=== PATIENT | male | born 1960 | race Two or more races ===

== ENCOUNTER 2020-04-21 11:08 | Inpatient (IN) | payer SELFPAY ==
[2020-04-21 11:42] LABS: ABSOLUTE EOSINOPHILS # (AUTO) 0.1 10^3/uL (0.0-0.6); ABSOLUTE LYMPHOCYTES (AUTO) 1.8 10^3/uL (0.5-4.7); ABSOLUTE MONOCYTES (AUTO) 0.4 10^3/uL (0.1-1.4); ABSOLUTE NEUT (AUTO) 7.4 10^3/uL (1.7-8.2); BASOPHILS % (AUTO) 0.5 % (0-2); EOSINOPHILS % (AUTO) 1.4 % (0-6); LYMPHOCYTES % (AUTO) 18.7 % (13-45); MEAN CORPUSCULAR HEMOGLOBIN 30.2 pg (27.0-33.4); MEAN CORPUSCULAR HGB CONC 35.7 g/dL (32.0-36.0); MEAN CORPUSCULAR VOLUME 85 fl (80-97); MONOCYTES % (AUTO) 4.4 % (3-13); PLATELET COUNT 270 10^3/uL (150-450); RED BLOOD COUNT 5.31 10^6/uL (4.35-5.55); RED CELL DISTRIBUTION WIDTH 13.1 % (11.5-14.0); TOTAL CELLS COUNTED % (AUTO) 100 %; WHITE BLOOD COUNT 9.9 10^3/uL (4.0-10.5)
[2020-04-21] MEDS: NORMAL SALINE 1000 ML 1,000 ML IV PRN ×2 (11:50→12:19)
[2020-04-21 12:02] LABS: ALBUMIN 4.6 g/dL (3.5-5.0); ALKALINE PHOSPHATASE 167 U/L (38-126); ANION GAP 12 (5-19); ASPARTATE AMINO TRANSFERASE 91 U/L (17-59); BLOOD UREA NITROGEN 15 mg/dL (7-20); CALCIUM 9.1 mg/dL (8.4-10.2); CARBON DIOXIDE 26 mmol/L (22-30); CHLORIDE 91 mmol/L (98-107); POTASSIUM 4.6 mmol/L (3.6-5.0)
[2020-04-21 12:28] LABS: GLUCOSE 613 mg/dL (75-110)
[2020-04-21] MEDS ORDERED: INSULIN REG, HUMAN 100 UNIT/ML 3 ML VIAL (PYX) IV ONE (12:30)
[2020-04-21 12:33] LABS: VENOUS BLOOD BASE EXCESS 1.2 mmol/L; VENOUS BLOOD PCO2 42.1 mmHg (35-63); VENOUS BLOOD PH 7.41 (7.30-7.42)
--- NOTE | 2020-04-21 13:07 | ER Document Report ---
Entered by BERKLEY RODRIGUEZ SCRIBE 04/21/20 1206 Acting as scribe for:RADHA PERES MD ED Blood Sugar Problem - General Chief Complaint: High Blood Sugar Stated Complaint: ABDOMINAL PAIN Time Seen by Provider: 04/21/20 11:44 Mode of Arrival: Medic Information source: Patient Notes: This 59 year old male patient presents to the emergency department today with complaints of urinary frequency and increased thirst for the last 2-3 weeks. Patient reports that he has never been diagnosed with diabetes. Patient also mentions some left sided flank pain. - Related Data Allergies/Adverse Reactions: No Known Allergies Allergy (Verified 04/21/20 12:21) Past Medical History - General Information source: Patient - Social History Smoking Status: Never Smoker Cigarette use (# per day): No Chew tobacco use (# tins/day): No Frequency of alcohol use: None Drug Abuse: None Occupation: construction Lives with: Family Family History: Reviewed & Not Pertinent - Medical History Medical History: Negative Surgical Hx: Negative Review of Systems - Review of Systems Constitutional: See HPI, Other - increased thrist, frequent urination EENT: No symptoms reported Cardiovascular: See HPI, Chest pain - reproducible Respiratory: No symptoms reported Gastrointestinal: See HPI, Abdominal pain Genitourinary: See HPI, Frequency, Flank pain Male Genitourinary: No symptoms reported Musculoskeletal: No symptoms reported Skin: No symptoms reported Hematologic/Lymphatic: No symptoms reported Neurological/Psychological: No symptoms reported -: Yes All other systems reviewed and negative Physical Exam - Vital signs Vitals: Temp Pulse Resp BP Pulse Ox 98.9 F 84 20 150/98 H 95 04/21/20 11:12 04/21/20 11:12 04/21/20 11:12 04/21/20 11:12 04/21/20 11:12 - Notes Notes: Physical Exam: General: Alert, appears well. No ketone odor on breath. HEENT: Normocephalic. Atraumatic. PERRL. Extraocular movements intact. Oropharynx clear. Dry oral mucosa. Neck: Supple. Non-tender. Respiratory: No respiratory distress. Clear and equal breath sounds bilaterally. Reproducible chest pain, chest wall tenderness to palpation. Not tachypneic. Cardiovascular: Regular rate and rhythm. Abdominal: Left lower quadrant and left lateral abdominal tenderness with palpation. No distension. Normal Bowel Sounds. Back: No muscle palpation tenderness. Left CVA percussion is quite tender. Right CVA percussion is not tender. Extremities: Moves all four extremities. Upper extremities: Normal inspection. Normal ROM. Lower extremities: Normal inspection. No edema. Normal ROM. Neurological: Normal cognition. AAOx4. Normal speech. Psychological: Normal affect. Normal Mood. Skin: Warm. Dry. Normal color. Course - Vital Signs Vital signs: Temp Pulse Resp BP Pulse Ox 98.1 F 84 21 H 144/79 H 97 04/21/20 13:46 04/21/20 11:12 04/21/20 14:01 04/21/20 14:01 04/21/20 14:01 - Laboratory Result Diagrams: 04/21/20 11:25 04/21/20 11:25 Laboratory results interpreted by me: 04/21/20 04/21/20 04/21/20 11:15 11:25 12:49 Sodium 129.3 L Chloride 91 L Glucose 613 H* POC Glucose > 550 H* 407 H* AST 91 H ALT 103 H Alkaline Phosphatase 167 H - EKG Interpretation by Ct EKG shows normal: Sinus rhythm, [place], Intervals, QRS Complexes, ST-T Waves Rate: Normal - 86 Rhythm: NSR - Consults Dr. Barber Time consulted: 13:15 Consulted provider: will come to ER Discharge - Discharge Clinical Impression: New onset type 2 diabetes mellitus, Acute left flank pain Hyperglycemia due to type 2 diabetes mellitus Qualifiers: Diabetes mellitus mcfp insulin use: without long term care administrator use Qualified Code(s): E11.65 - Type 2 diabetes mellitus with hyperglycemia Condition: Stable Disposition: ADMITTED INPATIENT Admitting Provider: Elisabeth (Hospitalist) Unit Admitted: Telemetry I personally performed the services described in the documentation, reviewed and edited the documentation which was dictated to the scribe in my presence, and it accurately records my words and actions.
[2020-04-21] MEDS ORDERED: NORMAL SALINE 1000 ML 1,000 ML IV ONE (13:38)
--- NOTE | 2020-04-21 14:36 | RADIOLOGY REPORT (SQ) ---
EXAM DESCRIPTION: KUB/ABDOMEN (SINGLE VIEW) IMAGES COMPLETED DATE/TIME: 04/21/2020 2:23 pm REASON FOR STUDY: Left lower quadrant abdominal pain COMPARISON: None. NUMBER OF VIEWS: One view. TECHNIQUE: Supine radiographic image of the abdomen acquired. LIMITATIONS: None. FINDINGS: BOWEL GAS PATTERN: Normal bowel gas pattern. No dilated loops. CALCIFICATIONS: No suspicious calcifications. SOFT TISSUES: No gross mass or suggestion of organomegaly. HARDWARE: None in the abdomen. BONES: No acute fracture. No worrisome bone lesions. OTHER: No other significant finding. IMPRESSION: NO RADIOGRAPHIC EVIDENCE FOR ACUTE ABDOMINAL DISEASE. TECHNICAL DOCUMENTATION: JOB ID: [id number] 2010 [employer]- All Rights Reserved Reading location - IP/workstation name: [email or web address]
[2020-04-21] MEDS ORDERED: KETOROLAC TROMETHAMINE INJ/PF 30 MG/1 ML SDV IV ONE (14:42)
--- NOTE | 2020-04-21 14:42 | EKG REPORT ---
SEVERITY:- OTHERWISE NORMAL ECG - SINUS RHYTHM LEFT AXIS DEVIATION : Confirmed by: Daphney Rosales MD 21-Apr-2020 14:41:38
[2020-04-21 15:16] LABS: APPEARANCE,URINE CLEAR; BILIRUBIN,URINE NEGATIVE (NEGATIVE); COLOR,URINE STRAW; GLUCOSE, URINE >=500 mg/dL (NEGATIVE); KETONES,URINE 20 mg/dL (NEGATIVE); LEUKOCYTE ESTERASE,URINE NEGATIVE (NEGATIVE); NITRITE,URINE NEGATIVE (NEGATIVE); PROTEIN,URINE NEGATIVE (NEGATIVE); URINE SPECIFIC GRAVITY 1.031; UROBILINOGEN,URINE NEGATIVE mg/dL (<2.0)
--- NOTE | 2020-04-21 15:23 | RADIOLOGY REPORT (SQ) ---
EXAM DESCRIPTION: CT ABD/PELVIS NO ORAL OR IV IMAGES COMPLETED DATE/TIME: 04/21/2020 3:01 pm REASON FOR STUDY: Left flank and abdomen pain COMPARISON: None. TECHNIQUE: CT scan of the abdomen and pelvis performed without intravenous or oral contrast. Images reviewed with lung, soft tissue, and bone windows. Reconstructed coronal and sagittal MPR images revi ewed. All images stored on PACS. All CT scanners at this facility use dose modulation, iterative reconstruction, and/or weight based d osing when appropriate to reduce radiation dose to as low as reasonably achievable (ALARA). [facility]: Dose Right [facility]: CareDose [facility]: Dose Right [facility]: Teradose 4D [facility]: [employer] RADIATION DOSE: CT Rad equipment meets quality standard of care and radiation dose reduction techniq ues were employed. CTDIvol: 16.2 mGy. DLP: 966 mGy-cm.mGy. LIMITATIONS: None. FINDINGS: LOWER CHEST: No significant findings. No nodules or infiltrates. NON-CONTRASTED LIVER, SPLEEN, ADRENALS: Evaluation limited by lack of IV contrast. No identified sign ificant masses. PANCREAS: No masses. No peripancreatic inflammatory changes. GALLBLADDER: No identified stones by CT criteria. No inflammatory changes to suggest cholecystitis. RIGHT KIDNEY AND URETER: No suspicious masses. Assessment limited by lack of IV contrast. No signif icant calcifications. No hydronephrosis or hydroureter. LEFT KIDNEY AND URETER: No suspicious masses. Assessment limited by lack of IV contrast. No signifi cant calcifications. No hydronephrosis or hydroureter. AORTA AND RETROPERITONEUM: No aneurysm. No retroperitoneal masses or adenopathy. BOWEL AND PERITONEAL CAVITY: Mild sigmoid diverticulosis. No obvious masses or inflammatory changes. No free fluid. APPENDIX: Surgically absent. PELVIS, BLADDER, AND ABDOMINAL WALL:No abnormal masses. No free fluid. Bladder normal. BONES: No significant findings. OTHER: No other significant finding. IMPRESSION: NO SIGNIFICANT OR ACUTE PROCESS IN THE ABDOMEN OR PELVIS. COMMENT: Quality ID # [id number]: Final reports with documentation of one or more dose reduction techniques (e.g., Automated exposure control, adjustment of the mA and/or kV according to patient size, use of iterative reconstruction technique) TECHNICAL DOCUMENTATION: JOB ID: [id number] 2010 [employer]- All Rights Reserved Reading location - IP/workstation name: [email or web address]
[2020-04-21] MEDS ORDERED: ONDANSETRON 4 MG TAB.RAPDIS PO PRN (15:42)
[2020-04-21] MEDS ORDERED: ONDANSETRON HCL INJ/PF 4 MG/2 ML SDV IV PRN (15:42)
[2020-04-21] MEDS ORDERED: ACETAMINOPHEN 325 MG TABLET PO PRN (15:42)
[2020-04-21 17:41] LABS: ANION GAP 6 (5-19); BLOOD UREA NITROGEN 13 mg/dL (7-20); CALCIUM 7.9 mg/dL (8.4-10.2); CARBON DIOXIDE 26 mmol/L (22-30); CHLORIDE 101 mmol/L (98-107); GLUCOSE 332 mg/dL (75-110); POTASSIUM 4.3 mmol/L (3.6-5.0)
--- NOTE | 2020-04-21 18:06 | PDOC H&P ---
History of Present Illness Admission Date/PCP: 04/21/20 14:07 History of Present Illness: JOSHUA DEL VALLE is a 59 year old male with no known past medical history who presents with a two-week history of progressive abdominal pain and nausea/vomiting/polyuria/polydipsia, found to have blood sugar in the 600s on arrival to ED. Sodium mildly low at 129, normal anion gap, UA showing glucos uria and mild ketones. Patient denies having any medical problems in the past and denies taking any medications. He is primarily Mohawk-speaking but also speaks some Iranian as well. We conversed in a mixture of both languages during this encounter and I answered the patient's questions to satisfaction. Patient will be admitted for insulin drip, IV fluids, diabetic education. He reportedly does not have insurance and will need to be connected with appropriate resources for his diabetic care. I did a diabetic foot exam during this encounter and he did not have any significant calluses or ulcers. Past Medical History Medical History: None Past Surgical History Past Surgical History: Reports: None Social History Information Source: Patient, Emergency Med Personnel Lives with: Family Smoking Status: Never Smoker Electronic Cigarette use?: No Frequency of Alcohol Use: Rare Hx Recreational Drug Use: No - Advance Directive Resuscitation Status: Full Code Surrogate healthcare decision maker:: Sister Family History Family History: None, Reviewed & Not Pertinent Parental Family History Reviewed: Yes Children Family History Reviewed: Yes Sibling(s) Family History Reviewed.: Yes Medication/Allergy Home Medications: No Home Medications 04/21/20 Allergies/Adverse Reactions: No Known Allergies Allergy (Verified 04/21/20 12:21) Review of Systems All systems: reviewed and no additional remarkable complaints except as stated - As per HPI, otherwise negative Physical Exam Vital Signs: Temp Pulse Resp BP Pulse Ox 98.1 F 84 14 127/73 H 99 04/21/20 13:46 04/21/20 11:12 04/21/20 16:01 04/21/20 16:01 04/21/20 16:01 Intake & Output 04/20/20 04/21/20 04/22/20 06:59 06:59 06:59 Intake Total 2000 Output Total 600 Balance 1400 Weight 99.5 kg General appearance: PRESENT: no acute distress, well-developed, well-nourished Head exam: PRESENT: atraumatic, normocephalic Eye exam: PRESENT: conjunctiva pink Mouth exam: PRESENT: moist Respiratory exam: PRESENT: clear to auscultation olga. ABSENT: rales, rhonchi, wheezes Cardiovascular exam: PRESENT: RRR. ABSENT: diastolic murmur, rubs, systolic murmur GI/Abdominal exam: PRESENT: normal bowel sounds, soft, tenderness - Mildly tender primarily in lower abdomen. ABSENT: distended, guarding, mass, organo lmegaly, rebound Rectal exam: PRESENT: deferred Musculoskeletal exam: PRESENT: ambulatory Neurological exam: PRESENT: alert, awake, oriented to person, oriented to place, oriented to time, oriented to situation Psychiatric exam: PRESENT: appropriate affect Skin exam: PRESENT: dry, intact, warm Results Laboratory Results: 04/21/20 11:25 04/21/20 16:51 04/21/20 04/21/20 04/21/20 11:25 11:25 12:05 WBC 9.9 RBC 5.31 Hgb 16.0 Hct 45.0 MCV 85 MCH 30.2 MCHC 35.7 RDW 13.1 Plt Count 270 Seg Neutrophils % 75.0 VBG pH 7.41 VBG pCO2 42.1 VBG HCO3 26.0 VBG Base Excess 1.2 Sodium 129.3 L Potassium 4.6 Chloride 91 L Carbon Dioxide 26 Anion Gap 12 BUN 15 Creatinine 0.83 Est GFR ( Amer) > 60 Glucose 613 H* Calcium 9.1 Total Bilirubin 1.0 AST 91 H Alkaline Phosphatase 167 H Total Protein 8.0 Albumin 4.6 Lipase Urine Color Urine Appearance Urine pH Ur Specific [place] Urine Protein Urine Glucose (UA) Urine Ketones Urine Blood Urine Nitrite Ur Leukocyte Esterase Urine WBC (Auto) Urine RBC (Auto) 04/21/20 04/21/20 14:55 16:51 WBC RBC Hgb Hct MCV MCH MCHC RDW Plt Count Seg Neutrophils % VBG pH VBG pCO2 VBG HCO3 VBG Base Excess Sodium 133.1 L Potassium 4.3 Chloride 101 Carbon Dioxide 26 Anion Gap 6 BUN 13 Creatinine 0.59 Est GFR ( Amer) > 60 Glucose 332 H Calcium 7.9 L Total Bilirubin AST Alkaline Phosphatase Total Protein Albumin Lipase 198.1 Urine Color STRAW Urine Appearance CLEAR Urine pH 7.0 Ur Specific [place] 1.031 Urine Protein NEGATIVE Urine Glucose (UA) >=500 H Urine Ketones 20 H Urine Blood NEGATIVE Urine Nitrite NEGATIVE Ur Leukocyte Esterase NEGATIVE Urine WBC (Auto) 1 Urine RBC (Auto) 1 Impressions: KUB X-Ray 04/21/20 13:53 IMPRESSION: NO RADIOGRAPHIC EVIDENCE FOR ACUTE ABDOMINAL DISEASE. Abdomen/Pelvis CT 04/21/20 14:45 IMPRESSION: NO SIGNIFICANT OR ACUTE PROCESS IN THE ABDOMEN OR PELVIS. Assessment and Plan - Diagnosis (1) New onset type 2 diabetes mellitus Is this a current diagnosis for this admission?: Yes Plan: Blood sugar 600 on admission Abdominal pain, polyuria, polydipsia, and nausea/vomiting on admission IV insulin started along with IV fluids Hemoglobin A1c peer educator consult (2) Elevated LFTs Is this a current diagnosis for this admission?: Yes Plan: Likely due to markedly elevated blood sugar Lipase normal Recheck LFTs (3) Mohawk speaking patient Is this a current diagnosis for this admission?: Yes - Time Time Spent with patient: 35 or more minutes Medications reviewed and adjusted accordingly: Yes Anticipated discharge: Home Within: within 72 hours - Inpatient Certification Based on my medical assessment, after consideration of the patient's comorbidities, presenting symptoms, or acuity I expect that the services needed warrant INPATIENT care.: Yes I certify that my determination is in accordance with my understanding of Medicare's requirements for reasonable and necessary INPATIENT services [42 CFR 412.3e].: Yes Medical Necessity: Significant Comorbidiites Make Outpatient Treatment Too Risky, Need Close Monitoring Due to Risk of Patient Decompensation, Need For IV Fluids, Risk of Complication if Not Cared For in Hospital, Risk of Diagnosis Which Will Require Inpatient Eval/Care/Monitoring
[2020-04-21] MEDS ORDERED: DEXTROSE 50%-WATER SYRINGE 12.5 GM/25 ML DOSE IV PRN (20:00)
[2020-04-21] MEDS ORDERED: DEXTROSE 40% GEL 15 GM TUBE X 2 PO PRN (20:00)
[2020-04-21] MEDS ORDERED: INSULIN, REGULAR 100 UNIT/100 ML NORMAL SALINE IV PRN ×2 (20:00)
[2020-04-21] MEDS ORDERED: DEXTROSE 40% GEL 15 GM TUBE PO PRN (20:00)
[2020-04-21] MEDS ORDERED: DEXTROSE 50%-WATER SYRINGE 25 GM/50 ML DOSE IV PRN (20:00)
[2020-04-21] MEDS ORDERED: GLUCAGON,HUMAN RECOMB 1 MG INJ IM PRN (20:00)
[2020-04-22 07:10] LABS: ABSOLUTE EOSINOPHILS # (AUTO) 0.2 10^3/uL (0.0-0.6); ABSOLUTE LYMPHOCYTES (AUTO) 2.2 10^3/uL (0.5-4.7); ABSOLUTE MONOCYTES (AUTO) 0.4 10^3/uL (0.1-1.4); ABSOLUTE NEUT (AUTO) 4.8 10^3/uL (1.7-8.2); BASOPHILS % (AUTO) 0.5 % (0-2); EOSINOPHILS % (AUTO) 2.9 % (0-6); HEMATOCRIT 40.8 % (37.9-51.0); HEMOGLOBIN 14.3 g/dL (13.5-17.0); LYMPHOCYTES % (AUTO) 28.7 % (13-45); MEAN CORPUSCULAR HEMOGLOBIN 29.7 pg (27.0-33.4); MEAN CORPUSCULAR VOLUME 85 fl (80-97); MONOCYTES % (AUTO) 4.7 % (3-13); PLATELET COUNT 246 10^3/uL (150-450); SEGMENTED NEUTROPHILS % (AUTO) 63.2 % (42-78); TOTAL CELLS COUNTED % (AUTO) 100 %; WHITE BLOOD COUNT 7.6 10^3/uL (4.0-10.5)
[2020-04-22 07:24] LABS: ALBUMIN 3.7 g/dL (3.5-5.0); ALKALINE PHOSPHATASE 98 U/L (38-126); ASPARTATE AMINO TRANSFERASE 108 U/L (17-59); BILIRUBIN,TOTAL 0.5 mg/dL (0.2-1.3); PHOSPHORUS 2.7 mg/dL (2.5-4.5); TOTAL PROTEIN 6.7 g/dL (6.3-8.2)
[2020-04-22] MEDS ORDERED: INSULIN GLARGINE,HUM.REC.ANLOG 1,000 UNIT/10 ML VIAL SUBCUT PRN (10:36)
[2020-04-22] MEDS: ENOXAPARIN SODIUM INJ 40 MG/0.4 ML DISP.SYRIN SUBCUT SCH (10:54)
[2020-04-22] MEDS: DOCUSATE SODIUM 100 MG CAPSULE PO SCH (10:56)
--- NOTE | 2020-04-22 12:08 | ADVANCED CARE ---
- Diagnosis (1) New onset type 2 diabetes mellitus Diagnosis Current: Yes (2) Elevated LFTs Diagnosis Current: Yes (3) Bengali speaking patient Diagnosis Current: Yes Attendance: Patient Resuscitation Status: Full Code Discussion: All aspects of code status discussed with patient/POA including cardioversion, chest compressions, and intubation and the patient/POA indicated they wish to be full code MPOA is designated as: Sister Time Spent: Greater than 17 minutes
[2020-04-22 15:54] LABS: ANION GAP 6 (5-19); BLOOD UREA NITROGEN 14 mg/dL (7-20); CALCIUM 8.2 mg/dL (8.4-10.2); CARBON DIOXIDE 25 mmol/L (22-30); CHLORIDE 102 mmol/L (98-107); GLUCOSE 334 mg/dL (75-110); POTASSIUM 4.8 mmol/L (3.6-5.0)
[2020-04-22] MEDS: LISINOPRIL 5 MG TABLET PO SCH (16:48)
[2020-04-22] MEDS: INSULIN LISPRO 100 UNIT/ML 3 ML VIAL SUBCUT SCH ×2 (16:48→21:11)
--- NOTE | 2020-04-22 19:02 | PDOC PROGRESS REPORT ---
Subjective Progress Note for:: 04/22/20 Subjective:: Patient met last night for new onset type 2 diabetes mellitus. BS more controlled. Started on Lantus. Pt states he has no insurance. Will need to switch to 70/30 as a more affordable option. May be able to transition to oral agents once A1C is at a more acceptable number. A1C notably 10.8. Possible DC tomorrow if BS controlled on 70/30. Reason For Visit: NEW ONSET DIABETES,HHS,HTN Physical Exam Vital Signs: Temp Pulse Resp BP Pulse Ox 97.8 F 57 L 16 113/59 L 96 04/22/20 16:37 04/22/20 16:37 04/22/20 16:37 04/22/20 16:37 04/22/20 16:37 Intake & Output 04/21/20 04/22/20 04/23/20 06:59 06:59 06:59 Intake Total 3061 469 Output Total 1000 Balance 2061 469 Weight 99.5 kg 100.9 kg General appearance: PRESENT: no acute distress, well-developed, well-nourished Head exam: PRESENT: atraumatic, normocephalic Eye exam: PRESENT: conjunctiva pink Mouth exam: PRESENT: moist Respiratory exam: PRESENT: clear to auscultation olga. ABSENT: rales, rhonchi, wheezes Cardiovascular exam: PRESENT: RRR. ABSENT: diastolic murmur, rubs, systolic murmur GI/Abdominal exam: PRESENT: normal bowel sounds, soft. ABSENT: distended, guarding, mass, organolmegaly, rebound, tenderness Extremities exam: ABSENT: pedal edema Neurological exam: PRESENT: alert, awake, oriented to person, oriented to place, oriented to time, oriented to situation Psychiatric exam: PRESENT: appropriate affect Skin exam: PRESENT: dry, intact, warm Results Laboratory Results: 04/22/20 06:29 04/22/20 15:09 04/22/20 04/22/20 04/22/20 06:29 06:29 15:09 WBC 7.6 RBC 4.80 Hgb 14.3 Hct 40.8 MCV 85 MCH 29.7 MCHC 35.0 RDW 13.0 Plt Count 246 Seg Neutrophils % 63.2 Sodium 132.6 L Potassium 4.8 Chloride 102 Carbon Dioxide 25 Anion Gap 6 BUN 14 Creatinine 0.61 Est GFR ( Amer) > 60 Glucose 334 H Calcium 8.2 L Phosphorus 2.7 Magnesium 2.1 Total Bilirubin 0.5 AST 108 H Alkaline Phosphatase 98 Total Protein 6.7 Albumin 3.7 Impressions: KUB X-Ray 04/21/20 13:53 IMPRESSION: NO RADIOGRAPHIC EVIDENCE FOR ACUTE ABDOMINAL DISEASE. Abdomen/Pelvis CT 04/21/20 14:45 IMPRESSION: NO SIGNIFICANT OR ACUTE PROCESS IN THE ABDOMEN OR PELVIS. Assessment and Plan - Diagnosis (1) New onset type 2 diabetes mellitus Is this a current diagnosis for this admission?: Yes Plan: Blood sugar 600 on admission Abdominal pain, polyuria, polydipsia, and nausea/vomiting on admission IV insulin started along with IV fluids, changed to SQ insulin -will need 70/30 insulin for more affordability as pt doesn't have insurance -d/w coordinator to try and refer pt to PCP who speaks georgian Hemoglobin A1c 10.8 diabetes educator consult (2) Elevated LFTs Is this a current diagnosis for this admission?: Yes (3) Armenian speaking patient Is this a current diagnosis for this admission?: Yes - Time Time Spent with patient: 25-34 minutes Medications reviewed and adjusted accordingly: Yes
[2020-04-23 06:04] LABS: ABSOLUTE EOSINOPHILS # (AUTO) 0.2 10^3/uL (0.0-0.6); ABSOLUTE LYMPHOCYTES (AUTO) 1.7 10^3/uL (0.5-4.7); ABSOLUTE MONOCYTES (AUTO) 0.3 10^3/uL (0.1-1.4); ABSOLUTE NEUT (AUTO) 4.8 10^3/uL (1.7-8.2); BASOPHILS % (AUTO) 0.3 % (0-2); HEMATOCRIT 40.3 % (37.9-51.0); HEMOGLOBIN 14.1 g/dL (13.5-17.0); LYMPHOCYTES % (AUTO) 24.4 % (13-45); MEAN CORPUSCULAR HEMOGLOBIN 30.1 pg (27.0-33.4); MEAN CORPUSCULAR VOLUME 86 fl (80-97); MONOCYTES % (AUTO) 4.4 % (3-13); PLATELET COUNT 223 10^3/uL (150-450); RED BLOOD COUNT 4.68 10^6/uL (4.35-5.55); RED CELL DISTRIBUTION WIDTH 13.2 % (11.5-14.0); SEGMENTED NEUTROPHILS % (AUTO) 67.9 % (42-78); TOTAL CELLS COUNTED % (AUTO) 100 %; WHITE BLOOD COUNT 7.1 10^3/uL (4.0-10.5)
[2020-04-23] MEDS: INSULIN LISPRO 100 UNIT/ML 3 ML VIAL SUBCUT SCH ×3 (08:36→17:21)
[2020-04-23] MEDS: HUM INSULIN NPH/REG INSULIN HM 100 UNIT/1 ML 3 ML SUBCUT SCH ×2 (10:25→17:21)
[2020-04-23] MEDS: DOCUSATE SODIUM 100 MG CAPSULE PO SCH (10:26)
[2020-04-23] MEDS: ENOXAPARIN SODIUM INJ 40 MG/0.4 ML DISP.SYRIN SUBCUT SCH (10:26)
[2020-04-23] MEDS: LISINOPRIL 5 MG TABLET PO SCH (10:26)
[2020-04-23 15:14] VITALS: BP 150/98
--- NOTE | 2020-04-23 15:14 | PDOC DISCHARGE SUMMARY ---
Impression - Admit/DC Date/PCP Admission Date/Primary Care Provider: 04/21/20 14:07 Discharge Date: 04/23/20 - Discharge Diagnosis (1) New onset type 2 diabetes mellitus Is this a current diagnosis for this admission?: Yes (2) Elevated LFTs Is this a current diagnosis for this admission?: Yes (3) Cymro speaking patient Is this a current diagnosis for this admission?: Yes - Additional Information Resuscitation Status: Full Code Discharge Diet: Diabetic Discharge Activity: Activity As Tolerated [facility]: [facility] [NO [facility]AL MD] - Prescriptions: Blood-Glucose Meter [Blood Glucose Meter] 1 each AC #1 each Blood Sugar Diagnostic [Blood Glucose Test] 1 each AC #100 strip Metformin HCl [Glucophage 500 mg Tablet] 500 mg PO BIDACBS #60 tablet Cephalexin Monohydrate [Keflex 500 mg Capsule] 500 mg PO QID 7 Days #28 capsule Lancets [Micro Thin Lancet] 1 each AC #100 each Lisinopril [Prinivil 5 mg Tablet] 5 mg PO DAILY #30 tablet Insulin NPH Hum/Reg Insulin Hm [Relion Novolin 70-30 Vial] 14 unit SQ BIDACBS #1 vial Home Medications: Blood Sugar Diagnostic [Blood Glucose Test] 1 each AC #100 strip 04/23/20 Blood-Glucose Meter [Blood Glucose Meter] 1 each AC #1 each 04/23/20 Cephalexin Monohydrate [Keflex 500 mg Capsule] 500 mg PO QID 7 Days #28 capsule 04/23/20 Insulin NPH Hum/Reg Insulin Hm [Relion Novolin 70-30 Vial] 14 unit SQ BIDACBS #1 vial 04/23/20 Lancets [Micro Thin Lancet] 1 each AC #100 each 04/23/20 Lisinopril [Prinivil 5 mg Tablet] 5 mg PO DAILY #30 tablet 04/23/20 Metformin HCl [Glucophage 500 mg Tablet] 500 mg PO BIDACBS #60 tablet 04/23/20 History of Present Illiness History of Present Illness: JOSHUA DEL VALLE is a 59 year old male with no known past medical history who presents with a two-week history of progressive abdominal pain and nausea/vomiting/polyuria/polydipsia, found to have blood sugar in the 600s on arrival to ED. Sodium mildly low at 129, normal anion gap, UA showing glucosuria and mild ketones. Patient denies having any medical problems in the past and denies taking any medications. He is primarily Cymro-speaking but also speaks some Slovak as well. We conversed in a mixture of both languages during this encounter and I answered the patient's questions to satisfaction. Patient will be admitted for insulin drip, IV fluids, diabetic education. He reportedly does not have insurance and will need to be connected with appropriate resources for his diabetic care. I did a diabetic foot exam during this encounter and he did not have any significant calluses or ulcers. Hospital Course Hospital Course: Patient went for new onset type 2 diabetes. Hemoglobin A1c over 10. Patient started on insulin drip, later transitioned to 70/30 which was determined to be the most affordable option for the patient who does not have insurance. Patient states he can afford this medication and agrees to inject himself with insulin, underwent teaching with perioperative educator here in nursing. Patient is discharged on ReliOn 70/30 insulin 14 units twice daily AC. He is also disc harged on metformin, lisinopril. Started on a 7-day course of Keflex for a small area of hair follicle infection which had become a small pustule during admission. Patient must follow-up with PCP at local [facility] and this is been arranged by our critical care nurse here. Prescriptions were also sent to his pharmacy for glucometer, lancets, and test strips. Patient counseled extensively on diabetic diet and use of insulin safely. I used a video chat cardiology physician on [facility] to assist with the discussion today. Physical Exam Vital Signs: Temp Pulse Resp BP Pulse Ox 97.6 F 53 L 16 127/55 H 98 04/23/20 07:28 04/23/20 07:28 04/23/20 03:36 04/23/20 07:28 04/23/20 07:28 Intake & Output 04/22/20 04/23/20 04/24/20 06:59 06:59 06:59 Intake Total 3061 469 Output Total 1000 Balance 1 469 Weight 99.5 kg 98.4 kg Results Laboratory Results: WBC 7.1 10^3/uL (4.0-10.5) 04/23/20 05:38 RBC 4.68 10^6/uL (4.35-5.55) 04/23/20 05:38 Hgb 14.1 g/dL (13.5-17.0) 04/23/20 05:38 Hct 40.3 % (37.9-51.0) 04/23/20 05:38 MCV 86 fl (80-97) 04/23/20 05:38 MCH 30.1 pg (27.0-33.4) 04/23/20 05:38 MCHC 35.0 g/dL (32.0-36.0) 04/23/20 05:38 RDW 13.2 % (11.5-14.0) 04/23/20 05:38 Plt Count 223 10^3/uL (150-450) 04/23/20 05:38 Lymph % (Auto) 24.4 % (13-45) 04/23/20 05:38 Churchill % (Auto) 4.4 % (3-13) 04/23/20 05:38 Eos % (Auto) 3.0 % (0-6) 04/23/20 05:38 Baso % (Auto) 0.3 % (0-2) 04/23/20 05:38 Absolute Neuts (auto) 4.8 10^3/uL (1.7-8.2) 04/23/20 05:38 Absolute Lymphs (auto) 1.7 10^3/uL (0.5-4.7) 04/23/20 05:38 Absolute Monos (auto) 0.3 10^3/uL (0.1-1.4) 04/23/20 05:38 Absolute Eos (auto) 0.2 10^3/uL (0.0-0.6) 04/23/20 05:38 Absolute Basos (auto) 0.0 10^3/uL (0.0-0.2) 04/23/20 05:38 Seg Neutrophils % 67.9 % (42-78) 04/23/20 05:38 VBG pH 7.41 (7.30-7.42) 04/21/20 12:05 VBG pCO2 42.1 mmHg (35-63) 04/21/20 12:05 VBG HCO3 26.0 mmol/L (20-32) 04/21/20 12:05 VBG Base Excess 1.2 mmol/L 04/21/20 12:05 Sodium 132.6 mmol/L (137-145) L 04/22/20 15:09 Potassium 4.8 mmol/L (3.6-5.0) 04/22/20 15:09 Chloride 102 mmol/L (98-107) 04/22/20 15:09 Carbon Dioxide 25 mmol/L (22-30) 04/22/20 15:09 Anion Gap 6 (5-19) 04/22/20 15:09 BUN 14 mg/dL (7-20) 04/22/20 15:09 Creatinine 0.61 mg/dL (0.52-1.25) 04/22/20 15:09 Est GFR ( Amer) > 60 (>60) 04/22/20 15:09 Est GFR (MDRD) Non-Af > 60 (>60) 04/22/20 15:09 Glucose 334 mg/dL (75-110) H 04/22/20 15:09 POC Glucose 224 mg/dL (70-110) H 04/23/20 12:50 Hemoglobin A1c % 10.8 % (4.7-6.0) H 04/21/20 11:25 Calcium 8.2 mg/dL (8.4-10.2) L 04/22/20 15:09 Phosphorus 2.7 mg/dL (2.5-4.5) 04/22/20 06:29 Magnesium 2.1 mg/dL (1.6-2.3) 04/22/20 06:29 Total Bilirubin 0.5 mg/dL (0.2-1.3) 04/22/20 06:29 Direct Bilirubin 0.0 mg/dL (0.0-0.4) 04/22/20 06:29 Neonat Total Bilirubin Not Reportable 04/22/20 06:29 Neonat Direct Bilirubin Not Reportable 04/22/20 06:29 Neonat Indirect Bili Not Reportable 04/22/20 06:29 AST 108 U/L (17-59) H 04/22/20 06:29 ALT 104 U/L (<50) H 04/22/20 06:29 Alkaline Phosphatase 98 U/L (38-126) 04/22/20 06:29 Total Protein 6.7 g/dL (6.3-8.2) 04/22/20 06:29 Albumin 3.7 g/dL (3.5-5.0) 07/01/20 06:29 Lipase 198.1 U/L (23-300) 04/21/20 16:51 Urine Color STRAW 04/21/20 14:55 Urine Appearance CLEAR 04/21/20 14:55 Urine pH 7.0 (5.0-9.0) 04/21/20 14:55 Ur Specific [place] 1.031 04/21/20 14:55 Urine Protein NEGATIVE mg/dL (NEGATIVE) 04/21/20 14:55 Urine Glucose (UA) >=500 mg/dL (NEGATIVE) H 04/21/20 14:55 Urine Ketones 20 mg/dL (NEGATIVE) H 04/21/20 14:55 Urine Blood NEGATIVE (NEGATIVE) 04/21/20 14:55 Urine Nitrite NEGATIVE (NEGATIVE) 04/21/20 14:55 Urine Bilirubin NEGATIVE (NEGATIVE) 04/21/20 14:55 Urine Urobilinogen NEGATIVE mg/dL (<2.0) 04/21/20 14:55 Ur Leukocyte Esterase NEGATIVE (NEGATIVE) 04/21/20 14:55 Urine WBC (Auto) 1 /HPF 04/21/20 14:55 Urine RBC (Auto) 1 /HPF 04/21/20 14:55 Urine Ascorbic Acid NEGATIVE (NEGATIVE) 04/21/20 14:55 Impressions: KUB X-Ray 04/21/20 13:53 IMPRESSION: NO RADIOGRAPHIC EVIDENCE FOR ACUTE ABDOMINAL DISEASE. Abdomen/Pelvis CT 04/21/20 14:45 IMPRESSION: NO SIGNIFICANT OR ACUTE PROCESS IN THE ABDOMEN OR PELVIS. Plan Time Spent: Greater than 30 Minutes Stroke Is this a Stroke Patient?: No Acute Heart Failure - Is this a Heart Failure Patient?: No
[2020-04-23] MEDS ORDERED: METFORMIN HCL 500 MG TABLET PO SCH (16:00)
[2020-04-23 16:56] LABS: ANION GAP 7 (5-19); BLOOD UREA NITROGEN 15 mg/dL (7-20); CALCIUM 8.6 mg/dL (8.4-10.2); CARBON DIOXIDE 24 mmol/L (22-30); CHLORIDE 101 mmol/L (98-107); GLUCOSE 251 mg/dL (75-110)
== END 2020-04-23 18:20 | disposition home or self-care (01) | DRG 639 ==
LOC: ER 11:08 → EH 14:07 → 3S 04-22 14:10
PROVIDERS: ADMIT Internal Medicine; ATTEND Internal Medicine
DX: E11.65 Type 2 diabetes mellitus with hyperglycemia (principal); I10 Essential (primary) hypertension; R79.89 Other specified abnormal findings of blood chemistry; Z59.7 Insufficient social insurance and welfare support
CPT/HCPCS: 36415; 74018; 74176; 80048; 80053; 80076; 81001; 82803; 82962; 83036; 83690; 83735; 84100; 85025; 93005; 93010; 99285; J1650; J1815; J1885; J7030